=== PATIENT | male | born 1965 | race Caucasian/White ===

== ENCOUNTER 2018-12-18 12:51 | Emergency (ER) | payer BC ==
[2018-12-18] MEDS ORDERED: Sodium Chloride 0.9% 10 ML Syringe FLUSH PRN (13:53)
[2018-12-18 14:12] LABS: ANION GAP 13.2; CHLORIDE,CL 108 mmol/L (101-111); SODIUM,NA 139 mmol/L (135-145)
--- NOTE | 2018-12-18 14:56 | EDM.PDOC ---
Scribed by Melissa Chan 12/18/18 [id number] for Gracie Hyman NP ED HPI GENERAL MEDICAL PROBLEM - General Chief Complaint: General Stated Complaint: MAYBE ALLERGIC REACTION? Time Seen by Provider: 12/18/18 13:46 Source of Information: Reports: Patient, RN, RN Notes Reviewed History Limitations: Reports: No Limitations - History of Present Illness INITIAL COMMENTS - FREE TEXT/NARRATIVE: Patient presents to ER with . At 11:30 a.m. began feeling liek he was in a "dream-like" states and very "weird" feeling. Symptoms have resolved now--after drinking gatorade and eating. He has had a head cold recently. No nausea, vomiting, diarrhea, chest pain or shortness of breath. Onset: Today Duration: Resolved Prior to Arrival Severity: Mild Improves with: Reports: None Worsens with: Reports: None Associated Symptoms: Reports: No Other Symptoms - Related Data Allergies Allergy/AdvReac Type Severity Reaction Status Date / Time No Known Allergies Allergy Verified 12/18/18 13:10 Home Meds: Home Meds Indomethacin [Indocin SR] 75 mg PO BID 12/18/18 [History] Lisinopril 15 mg PO DAILY 12/18/18 [History] Past Medical History HEENT History: Reports: Other (See Below) Other HEENT History: surgery on nose in high school Cardiovascular History: Reports: Hypertension Respiratory History: Reports: None Gastrointestinal History: Reports: None Genitourinary History: Reports: None Musculoskeletal History: Reports: Other (See Below) Other Musculoskeletal History: left elbow surgery Neurological History: Reports: None Psychiatric History: Reports: None Endocrine/Metabolic History: Reports: None Hematologic History: Reports: None Immunologic History: Reports: None Oncologic (Cancer) History: Reports: None Dermatologic History: Reports: None - Infectious Disease History Infectious Disease History: Reports: None - Past Surgical History Head Surgeries/Procedures: Reports: None Musculoskeletal Surgical History: Reports: Other (See Below) (elbow surgery) Social & Family History - Family History Family Medical History: Noncontributory - Tobacco Use Smoking Status *Q: Never Smoker Second Hand Smoke Exposure: No - Caffeine Use Caffeine Use: Reports: Coffee - Recreational Drug Use Recreational Drug Use: No ED ROS GENERAL - Review of Systems Review Of Systems: ROS reveals no pertinent complaints other than HPI. ED EXAM, GENERAL - Physical Exam Exam: See Below Exam Limited By: No Limitations General Appearance: Alert, WD/WN, No Apparent Distress Eye Exam: Bilateral Eye: EOMI, Normal Inspection, PERRL Ears: Normal External Exam, Normal Canal, Hearing Grossly Normal, Normal TMs Nose: Normal Inspection, Normal Mucosa, No Blood Throat/Mouth: Normal Inspection, Normal Lips, Normal Teeth, Normal Gums, Normal Oropharynx, Normal Voice, No Airway Compromise Head: Atraumatic, Normocephalic Neck: Normal Inspection, Supple, Non-Tender, Full Range of Motion Respiratory/Chest: No Respiratory Distress, Lungs Clear, Normal Breath Sounds, No Accessory Muscle Use, Chest Non-Tender Cardiovascular: Normal Peripheral Pulses, Regular Rate, Rhythm, No Edema, No Gallop, No JVD, No Murmur, No Rub GI/Abdominal: Normal Bowel Sounds, Soft, Non-Tender, No Organomegaly, No Distention, No Abnormal Bruit, No Mass (Male) Exam: Deferred Rectal (Males) Exam: Deferred Back Exam: Normal Inspection, Full Range of Motion, NT Extremities: Other (right elbow pain recent surgery) Neurological: Alert, Oriented, CN II-XII Intact, Normal Cognition, Normal Gait, Normal Reflexes, No Motor/Sensory Deficits Psychiatric: Normal Affect, Normal Mood Skin Exam: Warm, Dry, Intact, Normal Color, No Rash Lymphatic: No Adenopathy EKG INTERPRETATION EKG Date: 12/18/18 Time: 13:01 Rhythm: Other (sinus rhythm) Rate (Beats/Min): 87 Tiger: Normal P-Wave: Present QRS: Normal ST-T: Normal QT: Normal Course - Vital Signs Last Recorded V/S: Last Vital Signs Temp 97.8 F 12/18/18 12:58 Pulse 86 12/18/18 12:58 Resp 12 12/18/18 12:58 BP 152/99 H 12/18/18 12:58 Pulse Ox 99 12/18/18 12:58 - Orders/Labs/Meds Orders: Active Orders 24 hr Category Date Time Status Blood Glucose Check, Bedside [RC] ONETIME Care 12/18/18 13:01 Active EKG Documentation Completion [RC] STAT Care 12/18/18 13:53 Active Peripheral IV Care [RC] . DIRECTED Care 12/18/18 13:53 Active Peripheral IV Insertion Adult [OM.PC] Stat Oth 12/18/18 13:53 Ordered Labs: Laboratory Tests 12/18/18 12/18/18 12/18/18 Range/Units 13:00 13:05 13:05 WBC 7.4 (5.0-10.0) 10^3/uL RBC 5.12 (4.6-6.2) 10^6/uL Hgb 15.1 (14.0-18.0) g/dL Hct 44.1 (40.0-54.0) % MCV 86.1 (80-100) fL MCH 29.5 (27.0-34.0) pg MCHC 34.2 (33.0-35.0) g/dL Plt Count 288 (150-450) 10^3/uL Neut % (Auto) 65.4 (42.2-75.2) % Lymph % (Auto) 22.2 (20.5-50.1) % [place] % (Auto) 10.4 H (2-8) % Eos % (Auto) 1.9 (1.0-3.0) % Baso % (Auto) 0.1 (0.0-1.0) % Sodium 139 (135-145) mmol/L Potassium 4.2 (3.6-5.0) mmol/L Chloride 108 (101-111) mmol/L Carbon Dioxide 22.0 (21.0-31.0) mmol/L Anion Gap 13.2 BUN 23 H (7-18) mg/dL Creatinine 1.1 (0.6-1.3) mg/dL Est Cr Clr Drug Dosing 80.19 mL/min Estimated GFR (MDRD) > 60 BUN/Creatinine Ratio 20.90 Glucose 93 (74-105) mg/dL POC Glucose 90 (70-105) mg/dl Calcium 9.0 (8.4-10.2) mg/dl Total Bilirubin 0.7 (0.2-1.0) mg/dL AST 21 (10-42) IU/L ALT 21 (10-60) IU/L Alkaline Phosphatase 158 H (42-121) IU/L Troponin I < 0.02 (0.00-0.02) ng/ml Total Protein 7.1 (6.7-8.2) g/dl Albumin 4.1 (3.2-5.5) g/dl Globulin 3.0 Albumin/Globulin Ratio 1.37 Meds: Medications Discontinued Medications Generic Name Dose Route Start Last Admin Trade Name Asnon PRN Reason Stop Dose Admin Sodium Chloride 10 ml 12/18/18 13:53 12/18/18 13:58 Saline Flush FLUSH 10 ml ASDIRECTED PRN Administration Keep Vein Open Departure - Departure Time of Disposition: 14:15 Disposition: Home, Self-Care 01 Condition: Fair Clinical Impression: Hypoglycemia - Discharge Information *PRESCRIPTION DRUG MONITORING PROGRAM REVIEWED*: No *COPY OF PRESCRIPTION DRUG MONITORING REPORT IN PATIENT MARTINA: No Instructions: Hypoglycemia, [id number] Forms: ED Department Discharge Additional Instructions: Return to the ER with any further problems Follow up with your primary care facility - My Orders Last 24 Hours: My Active Orders 12/18/18 13:01 Blood Glucose Check, Bedside [RC] ONETIME 12/18/18 13:53 EKG Documentation Completion [RC] STAT Peripheral IV Care [RC] . DIRECTED Peripheral IV Insertion Adult [OM.PC] Stat - Assessment/Plan Last 24 Hours: My Active Orders 12/18/18 13:01 Blood Glucose Check, Bedside [RC] ONETIME 12/18/18 13:53 EKG Documentation Completion [RC] STAT Peripheral IV Care [RC] . DIRECTED Peripheral IV Insertion Adult [OM.PC] Stat I have read and agree with the documentation that has been completed regarding this visit. By signing this record, I attest that the documentation was completed in my physical presence and is an accurate record of the encounter.
== END 2018-12-18 14:18 | disposition home or self-care (01) ==
LOC: DL.ED 12:51
DX: E16.2 Hypoglycemia, unspecified (principal); I10 Essential (primary) hypertension; Z79.899 Other long term (current) drug therapy
CPT/HCPCS: 36415; 80053; 82962; 84484; 85025; 93005; 99285-25

== ENCOUNTER 2024-08-22 16:12 | Emergency (ER) | payer BC ==
[2024-08-22] MEDS: Aspirin 81 MG Tab.Chew PO ONE (16:31)
[2024-08-22] MEDS: Nitroglycerin 0.4 MG Tab.SL SL ONE ×2 (16:31→16:49)
[2024-08-22 17:02] LABS: BASOPHILS PERCENT AUTO 0.2 % (0.0-1.0); EOSINOPHILS PERCENT AUTO 1.1 % (1.0-3.0); HEMATOCRIT 44.9 % (40.0-54.0); HEMOGLOBIN 15.2 g/dL (14.0-18.0); LYMPHOCYTES PERCENT AUTO 13.3 % (20.5-50.1); MEAN CORPUSCULAR HEMOGLOBIN 30.3 pg (27.0-34.0); MEAN CORPUSCULAR HGB CONC 33.9 g/dL (33.0-35.0); MEAN CORPUSCULAR VOLUME 89.6 fL (80-100); MONOCYTES PERCENT AUTO 8.2 % (2-8); NEUTROPHILS PERCENT AUTO 77.2 % (42.2-75.2); PLATELET COUNT,PLT 212 10^3/uL (150-450); RED BLOOD CELL COUNT 5.01 10^6/uL (4.6-6.2); WHITE BLOOD CELL COUNT,WBC 11.9 10^3/uL (5.0-10.0)
[2024-08-22 17:18] LABS: A/G RATIO 1.1; ALBUMIN 3.6 g/dL (3.4-5.0); ANION GAP 12.3 mEq/L (7-13); BILIRUBIN TOTAL 0.5 mg/dL (0.2-1.0); BUN/CREATININE RATIO 21.2 (No establ ref range); CALCIUM 8.5 mg/dL (8.5-10.1); CREATININE 1.18 mg/dL (0.70-1.30); EST CRCL DRUG DOSING (CG) 69.6 mL/min; MAGNESIUM 1.9 mg/dL (1.8-2.4); POTASSIUM,K 4.3 mmol/L (3.5-5.1)
[2024-08-22] MEDS: GI Cocktail Oral Solution 30 ML PO ONE (17:40)
== END 2024-08-22 18:51 | disposition home or self-care (01) ==
LOC: DL.ED 16:12
DX: R07.89 Other chest pain (principal); K21.9 Gastro-esophageal reflux disease without esophagitis; I10 Essential (primary) hypertension; Z79.899 Other long term (current) drug therapy
CPT/HCPCS: 36415; 71045; 80053; 83690; 83735; 84484; 85025; 85379; 93005; 93010; 99284; 99285; A9270

== ENCOUNTER 2025-07-26 16:41 | Emergency (ER) | payer BC | END 2025-07-26 18:10 | disposition home or self-care (01) | LOC: DL.ED 16:41 | DX: S61.311A Laceration without foreign body of left index finger with damage to nail, initial encounter (principal); I10 Essential (primary) hypertension; E78.00 Pure hypercholesterolemia, unspecified; Z79.899 Other long term (current) drug therapy; W31.2XXA Contact with powered woodworking and forming machines, initial encounter; Y93.89 Activity, other specified | CPT/HCPCS: 99282; A9270-GY ==